=== PATIENT | male | born 1970 | race Two or more races ===

== ENCOUNTER 2016-11-12 17:04 | Emergency (ER) | payer MEDICAID ==
[2016-11-12] MEDS ORDERED: DIPHTH,PERTUSS(ACELL),TET VAC 0.5 ML VIAL IM V ONE (18:50)
== END 2016-11-12 19:30 | disposition home or self-care (01) ==
LOC: ED 17:04
DX: S01.01XA Laceration without foreign body of scalp, initial encounter (principal); S09.90XA Unspecified injury of head, initial encounter; Z23 Encounter for immunization; W20.8XXA Other cause of strike by thrown, projected or falling object, initial encounter; Y92.007 Garden or yard of unspecified non-institutional (private) residence as the place of occurrence of the external cause